=== PATIENT | male | born 1990 | race Caucasian/White ===

== ENCOUNTER 2023-09-09 08:35 | Emergency (ER) | payer BC, SELFPAY ==
[2023-09-09 08:42] VITALS: BP 134/77; PULSE 70; RESP 20; TEMP 36.2; O2SAT 98
--- NOTE | 2023-09-09 09:03 | ED.URI ---
HPI - URI/Sore Throat General Chief Complaint: Upper Respiratory Infection Stated Complaint: Sore Throat History of Present Illness HPI Narrative: 33-year-old male presented for complaint of sore throat, productive cough of green sputum, and fever/chills. Onset 3 days. Endorses temp up to 100.8. He denies shortness of breath, wheezing, nausea, vomiting, diarrhea or lethargy. Taking Tylenol and cough/ cold medication. Related Data Allergies Allergy/AdvReac Type Severity Reaction Status Date / Time No Known Allergies Allergy Verified 09/09/23 09:04 Review of Systems Review of Systems: CONSTITUTIONAL: Reports body aches, fever, chills, or sweats. EYES: Denies visual changes, redness, or discharge. ENT: reports sore throat Denies rhinorrhea, congestion, or otalgia. CARDIOVASCULAR: Denies chest pain, palpitations, or edema. RESPIRATORY: Denies dyspnea. GASTROINTESTINAL: Denies abdominal pain, nausea, vomiting, or diarrhea. SKIN: Denies rash, itching, or wounds. MUSCULOSKELETAL: Denies back pain, joint pain NEUROLOGIC: Denies headache Exam Narrative: GENERAL: well-appearing, no acute distress. EYES: conjunctivae clear ENT: Mucous membranes moist. TMs pearly hill with normal light reflex bilaterally; no tragal tenderness. Oropharynx mildly erythematous without lesions. Tonsils not enlarged and without exudate. No drooling, no hoarseness, no trismus, uvula midline. No tripod positioning, hot potato voice, or soft palate swelling. NECK: Supple. No lymphadenopathy CHEST: Clear to auscultation, breath sounds equal. No respiratory distress, speaks in full sentences. HEART: Regular rate and rhythm. No murmur heard. SKIN: Warm, dry, no rash. NEURO: Alert and oriented x3. Course Course Emergency Course: Patient is aware of diagnosis, understands and agrees to treatment plan. Anticipatory guidance given. Patient agrees to follow-up as directed and is aware of reasons to seek care at the emergency department. Portions of this record may have been created with voice recognition software Level of Care: Express Care Visit Vital Signs Vital signs: Vital Signs Temperature 97.1 F L 09/09/23 08:42 Pulse Rate 70 09/09/23 08:42 Respiratory Rate 20 09/09/23 08:42 Blood Pressure 134/77 09/09/23 08:42 Pulse Oximetry 98 09/09/23 08:42 Oxygen Delivery Room Air 09/09/23 08:42 Temperature 97.1 F L 09/09/23 08:42 Pulse Rate 70 09/09/23 08:42 Respiratory Rate 20 09/09/23 08:42 Blood Pressure 134/77 09/09/23 08:42 Pulse Oximetry 98 09/09/23 08:42 Oxygen Delivery Room Air 09/09/23 08:42 MDM - URI/Sore Throat MDM Narrative Medical decision making narrative: negative strep result reviewed with pt. patient declined viral testing. Advise supportive treatments. Patient is appropriate for outpatient treatment and follow-up. Differential Diagnosis Differential diagnosis: Likely upper respiratory infection, viral infection and pharyngitis Lab Data Labs: Strep Screen Presumptive Negative *(Reference Range: Negative)* Discharge Plan Discharge Clinical Impression: Upper respiratory infection Patient Disposition: Home, Self-Care Condition: Stable Instructions: Antibiotic Form, Upper Respiratory Infection (ED) Additional Instructions: Rapid strep swab was negative today You will be notified in a few days if the culture comes back positive for strep, and appropriate antibiotics will be called in at that time. if symptoms are due to a viral illness, it is not treated with antibiotics. Viral symptoms can be present for up to 10-14 days. Recommend Flonase spray and Zyrtec for sinus congestion Cough syrup may cause drowsiness; avoid driving or take it at night time. Tylenol every 8 hours as needed for pain/fever Soft foods, cool liquids, warm tea. Gargle with warm saltwater twice a day. Chlorasepti
== END 2023-09-09 09:15 | disposition home or self-care (01) ==
PROVIDERS: Emergency Provider Nurse Practitioner Family
DX: J06.9 Acute upper respiratory infection, unspecified (principal)
CPT/HCPCS: 87081; 87880; 99213; G0463

== ENCOUNTER 2024-10-06 15:19 | Emergency (ER) | payer BC, SELFPAY ==
[2024-10-06 15:28] VITALS: BP 144/72; PULSE 60; RESP 16; TEMP 36.1; O2SAT 98
--- NOTE | 2024-10-06 15:37 | ED.SKABFB ---
HPI - Skin/Abscess/Foreign Bdy General Chief complaint: Skin/Abscess/Foreign Body Stated complaint: covered in posion maría Source: patient Mode of arrival: ambulatory Limitations: no limitations History of Present Illness HPI narrative: 34-year-old male presented for complaint of itchy rash to both arms worsening over the past 3 days. States he was trimming brush and was exposed to poison maría. Has used zanfel scrub. Denies lip, tongue, or throat swelling, shortness of breath or wheezing. Denies changes to soap, detergent, lotion, or any other exposures. No one else in the house or any contacts with similar symptoms. Related Data Allergies Allergy/AdvReac Type Severity Reaction Status Date / Time No Known Allergies Allergy Verified 10/06/24 15:34 Review of Systems Review of Systems: CONSTITUTIONAL: Denies body aches, fever, chills, or sweats. EYES: Denies visual changes, redness, or discharge. ENT: Denies rhinorrhea, congestion CARDIOVASCULAR: Denies chest pain, palpitations, or edema. RESPIRATORY: Denies cough or dyspnea. GASTROINTESTINAL: Denies abdominal pain, nausea, vomiting, or diarrhea. SKIN: reports itching and rash to arms MUSCULOSKELETAL: Denies back pain, joint pain, or myalgia. NEUROLOGIC: Denies headache, numbness, tingling, or weakness. PMFSH Comments At time of signature, I have reviewed and agree with nursing past medical, surgical, social and family history unless otherwise noted. Please see nursing chart for further information. There is no relevant family history pertinent to the presenting complaint Exam Narrative: GENERAL: Well-appearing HEAD: Normocephalic, atraumatic. EYES: conjunctivae clear, and EOMI. ENT: Mucous membranes moist. Oropharynx without edema, erythema or lesions. NECK: Supple. No lymphadenopathy CHEST: Clear to auscultation. HEART: Regular rate and rhythm. SKIN: Warm, dry. bilateral arms with pinpoint vesicles on erythematous base consistent with poison maría as reported NEURO: Alert and oriented x3. Course Course Emergency Course: Patient is aware of diagnosis, understands and agrees to treatment plan. Anticipatory guidance given. Patient agrees to follow-up as directed and is aware of reasons to seek care at the emergency department. Portions of this record may have been created with voice recognition software Level of Care: Express Care Visit Vital Signs Vital signs: Vital Signs Temperature 97 F L 10/06/24 15:28 Pulse Rate 60 10/06/24 15:28 Respiratory Rate 16 10/06/24 15:28 Blood Pressure 144/72 H 10/06/24 15:28 Pulse Oximetry 98 10/06/24 15:28 Oxygen Delivery Room Air 10/06/24 15:28 Temperature 97 F L 10/06/24 15:28 Pulse Rate 60 10/06/24 15:28 Respiratory Rate 16 10/06/24 15:28 Blood Pressure 144/72 H 10/06/24 15:28 Pulse Oximetry 98 10/06/24 15:28 Oxygen Delivery Room Air 10/06/24 15:28 Reviewed MDM - Skin/Abscess/Foreign Bdy MDM Narrative Medical decision making narrative: Instructed patient to go to nearest ER immediately for any worsening symptoms including but not limited to: fever, spreading rash, pain, sore throat, headache, dizziness, chest pain, trouble breathing, or any symptoms concerning to the patient. Differential Diagnosis Differential diagnosis: Likely abscess of skin or subcutaneous tissue, urticaria, herpes zoster, cellulitis and contact dermatitis Discharge Plan Discharge Clinical Impression: Contact dermatitis Patient Disposition: Home, Self-Care Condition: Stable Instructions: Antibiotic Form, Poison María (ED) Additional Instructions: Take steroids and Pepcid as directed. Benadryl or Zyrtec according to package directions for itching Cool compresses to the sites of itching, avoid hot water. Avoid scratching to reduce the risk of infection Follow up with your primary care provider as needed in 1 week Go to the ER for worsening symptoms or concerns (lip, tongue, throat swelling/itching, trouble breathing etc) Patient Language: Citizen Of [place] Prescriptions: New famotidine [Pepcid] 40 mg tablet 40 mg PO DAILY Qty: 10 0RF prednisone 20 mg tablet 20 mg PO DAILY Qty: 18 0RF Rx Instructions: take 3 tablets daily for 3 days, then 2 tablets daily for 3 days then 1 tablet daily for 3 days Follow-up/Referrals: PHYSICIAN,WASTEWATER ENGINEER [Primary Care Provider] - Time of Disposition: 16:11
--- OUTSIDE RECORDS SUMMARY | 2024-10-06 16:32 | XMS_ITS | Referral Summary ---
Author Organization [address] Address [address] [place] [address] Care Team Providers Care Content Director Name Role Phone Paul Suarez MD Primary Care Provider [phone] Allergies No known active allergies Medications No known medications Active Problems No known active problems Immunizations Immunization Administration Dates Next Due Influenza, Unspecified 04/24/2020(Deferr ed: Patient Refused),07/07/2019(Deferred: Patient Refused) Tdap 08/08/2017 Social History Tobacco Use Types Packs/Day Years Used Date Smoking Tobacco: Never Smokeless Tobacco: Never Alcohol Use Standard Drinks/Week Comments Yes 0 (1 standard drink = 0.6 oz pur e alcohol) socially PHQ-2 Answer Date Recorded PHQ-2 Total Score (If total score is 3 or more points, staff should administer the PHQ-9) 0 04/24/2020 Personal Safety Answer Date Recorded Getting School Help Needed Not on file 09/06 Sex and Gender Information Value Date Recorded Sex Assigned at Not on file Legal Sex Male 1:10 PM CDT Gender Identity Not on file Sexual Orientation Not on file Last Filed Vital Signs Vital Sign Reading Time Taken Comments Blood Pressure 120/78 04/24/2020 11:10 AM CDT Pulse 76 04/24/2020 11:10 AM CDT Temperature 36.2 C (97.1 F) 04/24/2020 11:10 AM CDT Respiratory Rate 16 04/24/2020 11:10 AM CDT Oxygen Saturation 99% 04/24/2020 11:10 AM CDT Inhaled Oxygen Concentration - - Weight 86.2 kg (190 lb) 04/24/2020 11:10 AM CDT Height 175.3 cm (5' 9 ) 04/24/2020 11:10 AM CDT Body Mass Index 28.06 04/24/2020 11:10 AM CDT Plan of Treatment Not on file Insurance [facility] [place] [address] [place] [address] [facility] Care Teams Content Director Relationship Specialty Start Date End [place] [address] PCP - General Family Medicine 03/28/20
--- OUTSIDE RECORDS SUMMARY | 2024-10-06 16:32 | XMS_ITS | Clinical Summary ---
Author Organization [facility] Address [address] [place] [address] Care Team Providers Care Molded Goods Spot Picker Name Role Phone Fransisco Huitron Primary Care Provider Unavailab le Source Comments [facility],non-owned Affiliates and Associated Physician Practices is amultiple site organization consisting of ambulatory clinics and hospital sitesin [place], [place], [place] and [place]. This disclosure is being madepursuant to the Care Everywhere program and may not contain all information available regarding this patient. Last updated 18.[facility] Social History Tobacco Use Types Packs/Day Years Used Date Smoking Tobacco: Never Alcohol Use Standard Drinks/Week Comments Yes 0 (1 standard drink = 0.6 oz pur e alcohol) Sex and Gender Information Value Date Recorded Sex Assigned at Not on file Gender Identity Not on file Sexual Orientation Not on file Last Filed Vital Signs Vital Sign Reading Time Taken Comments Blood Pressure 121/63 2016 6:15 AM ARTS THERAPIST Pulse 103 2016 6:19 AM ARTS THERAPIST Temperature - - Respiratory Rate - - Oxygen Saturation 97% 2016 6:19 AM ARTS THERAPIST Inhaled Oxygen Concentration - - Weight - - Height - - Body Mass Index - - Plan of Treatment Health Maintenance Due Date Last Done Comments HIV SCREENING 2004 HEPATITIS C SCREENING 08/07/2007 DTAP/TDAP/TD VACCINES (1 - Tdap) 2008 HEPATITIS B VACCINE (1 of 3 - 19+ 3-dose series) 2008 COVID-19 VACCINE ( - 2023-2 5 season) 2024 INFLUENZA VACCINE (#1) 2024 DEPRESSION SCREENING 07/07/2024 ZOSTER VACCINE (1 of 2) 2039 HIB VACCINE Aged Out No longer eligi ble based on patient's age to complete this topic HPV VACCINE Aged Out No longer eligi ble based on patient's age to complete this topic MENINGOCOCCAL (Group B) VACC INE SHARED DECISION-MAKING Aged Out No longer eligibl e based on patient's age to complete this topic MENINGOCOCCAL GROUPS A/C/Y/W VACCINE Aged Out No longer eligible b ased on patient's age to complete this topic PNEUMOCOCCAL VACCINE Aged Out No long er eligible based on patient's age to complete this topic Care Teams Molded Goods Spot Picker Relationship Specialty Start Date End Date Fransisco Huitron Update Information PCP - General 08/11/16
--- OUTSIDE RECORDS SUMMARY | 2024-10-06 16:32 | XMS_ITS | Clinical Summary ---
Author Organization [facility] Address [address] [place] [id number] Care Team Providers Care Parking Enforcement Officer Name Role Phone Unavailable Primary Care Provider Unavailabl e Social History Tobacco Use Types Packs/Day Years Used Date Smoking Tobacco: Never Assessed Sex and Gender Information Value Date Recorded Sex Assigned at Not on file Legal Sex Male 7:38 PM CDT Gender Identity Not on file Sexual Orientation Not on file Plan of Treatment Health Maintenance Due Date Last Done Comments Annual Physical 1992 Hepatitis C 2007 DTaP, Tdap and Td Vaccines ( 1 - Tdap) 2008 Hepatitis B Vaccines (1 of 3 - 19+ 3-dose series) 2008 COVID-19 Vaccine (2023-2 5 season) 2024 HPV Vaccines Aged Out No longer eligi ble based on patient's age to complete this topic Meningococcal B Vaccine Aged Out No l onger eligible based on patient's age to complete this topic Meningococcal Vaccine Aged Out No kenyatta carlos eligible based on patient's age to complete this topic Pneumococcal Vaccine: Pediat rics (0 to 5 Years) and At-Risk Patients (6 to 64 Years) Aged Out No longer eligible b ased on patient's age to complete this topic RSV Immunizations Under 20 Months Aged Out No longer eligible based on patient's age to complete this topic
--- OUTSIDE RECORDS SUMMARY | 2024-10-06 16:32 | XMS_ITS | Clinical Summary ---
Author Organization [address] Address [address] [place] [address] Care Team Providers Care Strategic Sourcing Manager Name Role Phone Paul Suarez MD Primary Care Provider [phone] Allergies No known active allergies Medications No known medications Active Problems No known active problems Immunizations Immunization Administration Dates Next Due Influenza, Unspecified 04/24/2020(Deferr ed: Patient Refused),07/07/2019(Deferred: Patient Refused) Tdap 08/08/2017 Surgical History Surgery Date Site/Laterality Comments ANKLE SURGERY 07/07/2015 - 07/06/201601/2007, 06/2016 Family History Medical History Relation Name Comments Hyperlipidemia Father Hypertension Father Rheum arthritis Mother Relation Name Status Comments Father Alive Mother Alive Social History Tobacco Use Types Packs/Day Years [...] on file Sexual Orientation Not on file Obstetrics History Last Filed Vital Signs Vital Sign Reading [...] Plan of Treatment Not on file Insurance Care Teams Strategic Sourcing Manager Relationship Specialty Start Date End Date [place] [address] PCP - General Family Medicine 03/28/20
== END 2024-10-06 16:19 | disposition home or self-care (01) ==
PROVIDERS: Emergency Provider Nurse Practitioner Family
DX: L25.9 Unspecified contact dermatitis, unspecified cause (principal)
CPT/HCPCS: 99213; G0463